=== PATIENT | female | born 1945 | race Caucasian/White ===

== ENCOUNTER 2020-01-13 14:02 | Emergency (ER) | payer OTHER ==
[~2020-01-13] VITALS: Ht 165.1 cm; Wt 84.4 kg
[2020-01-13] MEDS ORDERED: LISINOPRIL-HCT1 EAC1 PO (14:42)
[2020-01-13] MEDS ORDERED: DULOXETINE HCL60 MG PO (14:42)
[2020-01-13] MEDS ORDERED: BUPROPION XL300 MG PO (14:42)
[2020-01-13] MEDS ORDERED: FOLIC ACID1 MG PO (14:43)
[2020-01-13] MEDS ORDERED: LORCET 5-325 M1 EACH PO (18:38)
[2020-01-13 18:50] VITALS: BP 142/56
== END 2020-01-13 18:51 | disposition home or self-care (01) ==
LOC: ER 14:02
DX: S01.81XA Laceration without foreign body of other part of head, initial encounter (principal); R07.81 Pleurodynia; J44.9 Chronic obstructive pulmonary disease, unspecified; Z88.1 Allergy status to other antibiotic agents; Z85.3 Personal history of malignant neoplasm of breast; Z79.899 Other long term (current) drug therapy; W01.198A Fall on same level from slipping, tripping and stumbling with subsequent striking against other object, initial encounter; Y93.K1 Activity, walking an animal; Y92.488 Other paved roadways as the place of occurrence of the external cause; Y99.8 Other external cause status